=== PATIENT | male | born 2000 | race Caucasian/White ===

== ENCOUNTER 2021-10-20 13:00 | Emergency (ER) | payer OTHER ==
[2021-10-20 14:18] LABS: BASOPHIL 0.2 % (0-2); EOSINOPHIL 0.5 % (0-5); HCT 48.6 % (42.0-52.0); HGB 16.7 g/dl (13.2-18.0); LYMPHOCYTE 8.8 % (15-48); MCH 30.3 pg (25.0-31.0); MCHC 34.4 g/dL (32.0-36.0); MCV 88.2 fL (78.0-100.0); MONOCYTE 4.8 % (0-12); MPV 11.7 fL (6.0-9.5); NEUTROPHIL 85.3 % (41-80); NRBC 0; PLT 253 K/uL (150-400); RBC 5.51 M/uL (4.70-6.00); RDW 12.8 % (11.5-14.0); WBC 12.5 K/uL (4.0-10.5)
[2021-10-20 14:57] LABS: CORONAVIRUS 2019 SARS-COV-2 NEGATIVE (NEGATIVE); INFLUENZA A NAA NEGATIVE (NEGATIVE)
[2021-10-20 15:16] LABS: ALBUMIN 3.3 g/dL (3.4-5.0); BILIRUBIN - TOTAL 0.3 mg/dL (0.2-1.0); BUN/CREAT RATIO (CALC) 12.8 RATIO; CREATININE 0.86 mg/dL (0.67-1.17); GLOBULIN (CALCULATION) 3.6 g/dL; POTASSIUM 4.8 mmol/L (3.5-5.1); TOTAL PROTEIN 6.9 g/dL (6.4-8.2)
[2021-10-20] MEDS ORDERED: NORCO 5-325 TA1 EACH PO (17:48)
[2021-10-20] MEDS ORDERED: ONDANSETRON ODT4 MG PO (17:48)
== END 2021-10-20 18:43 | disposition home or self-care (01) ==
LOC: FER 13:00
PROVIDERS: Nurse Practitioner Family
DX: K82.8 Other specified diseases of gallbladder (principal); Z20.822 Contact with and (suspected) exposure to COVID-19; Z28.310 Unvaccinated for COVID-19
CPT/HCPCS: 36415; 80053; 85025; J1885; J2405; J7030; Q9967; U0002

== ENCOUNTER 2021-11-10 21:56 | Emergency (ER) | payer OTHER ==
[~2021-11-10 21:56] MED LIST: NORCO 5-325 TA1 EACH PO; ONDANSETRON ODT4 MG PO
[2021-11-10] MEDS ORDERED: VIBRAMYCIN100 MG PO (23:51)
== END 2021-11-11 00:05 | disposition home or self-care (01) ==
LOC: FER 21:56
DX: S61.210A Laceration without foreign body of right index finger without damage to nail, initial encounter (principal); W45.8XXA Other foreign body or object entering through skin, initial encounter; Y93.89 Activity, other specified; Y92.89 Other specified places as the place of occurrence of the external cause; Y99.0 Civilian activity done for income or pay
CPT/HCPCS: 73120; 90471; 90715

== ENCOUNTER → 2021-11-17 | Day surgery (SDC) | payer OTHER ==
[~2021-11-17] VITALS: Ht 170.2 cm; Wt 108.9 kg
[~2021-11-17] MED LIST changes: +ACETAMINOPHEN500 M1 PO; +COLACE100 MG PO; +MOTRIN600 MG PO; +ONDANSETRON HCL4 MG PO; +OXY-IR 5MG5 MG PO; +VIBRAMYCIN100 MG PO
== END | disposition home or self-care (01) ==
LOC: FAS 08:12
DX: K80.12 Calculus of gallbladder with acute and chronic cholecystitis without obstruction (principal); K82.8 Other specified diseases of gallbladder
CPT/HCPCS: J1100; J1170; J1644; J1885; J2250; J2405; J2543; J2704; J3010; J7120; Q9967